=== PATIENT | male | born 1955 | race American Indian/Alaskan Native ===

== ENCOUNTER 2024-06-20 16:42 | Emergency (ER) | payer SELFPAY ==
[~2024-06-20] VITALS: Ht 162.6 cm; Wt 64.0 kg
[2024-06-20 16:51] VITALS: O2SAT 100
[2024-06-20] MEDS: IBUPROFEN 600MG TABLET PO STA (18:24)
[2024-06-20] MEDS: ACETAMINOPHEN 325MG TABLET PO STA (18:24)
[2024-06-20 19:57] VITALS: BP 117/76; PULSE 77; RESP 16; TEMP 98
[2024-06-20 20:15] LABS: BASOPHILS % 0.7 % (0.0-2.0); DIFFERENTIAL COMMENT 0; EOSINOPHILS % 0.8 % (0.0-5.0); HEMATOCRIT. 34.6 % (42.0-52.0); LYMPHOCYTES % 24.9 % (20.0-50.0); MEAN CORPUSCULAR HEMOGLOBIN 25.3 pg (28.0-32.0); MEAN CORPUSCULAR HGB CONC 31.9 g/dL (31.0-37.0); MEAN CORPUSCULAR VOLUME 79.5 fL (80.0-94.0); MONOCYTES % 10.9 % (2.0-8.0); NEUTROPHILS % 62.7 % (40.0-76.0); PLATELET 283 x1000/uL (130-400); RED BLOOD CELL COUNT 4.36 mill/uL (4.7-6.1); RED CELL DISTRIBUTION WIDTH 18.2 % (11.6-14.6); WHITE BLOOD COUNT 5.4 x1000/uL (4.5-11.0)
[2024-06-20 20:20] LABS: CHLORIDE 110 mEq/L (98-107); POTASSIUM 3.8 mEq/L (3.5-5.1); SODIUM 142 mEq/L (136-145)
[2024-06-20 20:21] LABS: CARBON DIOXIDE 25 mEq/L (21-32)
[2024-06-20 20:26] LABS: GLUCOSE 92 mg/dL (70-105); UREA NITROGEN BLOOD 16 mg/dL (9-23)
[2024-06-20 20:27] LABS: ETHANOL BLOOD < 10 mg/dL (<10); TROPONIN I HIGH SENSITIVITY 5 ng/L (3.0-53)
[2024-06-20 20:28] LABS: CREATINE KINASE 612 IU/L (46-171)
[2024-06-20 21:00] LABS: TROPONIN I HIGH SENSITIVITY 5 ng/L (3.0-53)
== END 2024-06-20 21:59 | disposition home or self-care (01) ==
LOC: ER 16:42
DX: M62.831 Muscle spasm of calf (principal); M79.604 Pain in right leg; M79.605 Pain in left leg; E11.9 Type 2 diabetes mellitus without complications; I10 Essential (primary) hypertension
CPT/HCPCS: 36415; 80048; 80320; 82550; 84484; 85025; 99283; G0480